=== PATIENT | female | born 1995 | race African-American/Black ===

== ENCOUNTER 2017-07-09 00:38 | Emergency (ER) | payer MEDICAID ==
[~2017-07-09] VITALS: Ht 175.3 cm; Wt 65.0 kg
[2017-07-09] MEDS ORDERED: SODIUM CHLORIDE 0.9% 1,000 ML IV ONE (01:15)
[2017-07-09] MEDS ORDERED: DIPHENHYDRAMINE 50MG/ML VIAL IV ONE (01:15)
[2017-07-09] MEDS ORDERED: FAMOTIDINE 20MG TABLET PO ONE (01:15)
[2017-07-09] MEDS ORDERED: EPINEPHRINE 1:1000 1 MG/ML AMP IM ONE (01:15)
[2017-07-09] MEDS ORDERED: METHYLPREDNISOLONE SOD SUCC 125 MG/2 ML VIAL IV ONE (01:15)
[2017-07-09 03:05] VITALS: BP 120/82
== END 2017-07-09 03:43 | disposition home or self-care (01) ==
LOC: ER 01:20
DX: T78.40XA Allergy, unspecified, initial encounter (principal); J45.909 Unspecified asthma, uncomplicated; F17.200 Nicotine dependence, unspecified, uncomplicated; Z81.8 Family history of other mental and behavioral disorders; X58.XXXA Exposure to other specified factors, initial encounter
CPT/HCPCS: 96361; 96372; 96374; 96375; 99285; J0171; J1200; J2930; J7030; Z7610